=== PATIENT | female | born 1980 | race Caucasian/White ===

== ENCOUNTER 2018-04-16 07:57 | Day surgery (SDC) | payer OTHER ==
--- OUTSIDE RECORDS SUMMARY | 2018-04-16 08:00 | XMS REPORT | Clinical Summary ---
:1980 Author Organization [facility] Address [address] [place] [address] Care Team Providers Name Role Phone Shandra Horn MD Primary Care Provider Allergies Active Allergy Reactions Severity Noted Date Comments Sulfacetamide Sodium 02/15/2016 Current Medications Prescription Sig. Disp. Refills Start Date End Date Status albuterol (PROAIR HFA) INHALE TWO (2) Active 90 mcg/actuation PUFF(S) EVERY inhaler FOUR HOURS NEEDED. montelukast (SINGULAIR) TAKE ONE (1) Active 10 mg tablet TABLET(S) BY MOUTH EVERY DAY FOR 180 DAYS. MULTIVITAMIN (MULTIPLE Take by mouth. Active VITAMINS DAILY ORAL) fluticasone-salmeterol Inhale 1 puff 2 Active (ADVAIR) 250-50 (two) times a mcg/dose DISKUS day. acetaminophen-codeine 03/09/2016 Active (TYLENOL #3) 300-30 mg per tablet ibuprofen 03/09/2016 Active (ADVIL,MOTRIN) 800 MG tablet ondansetron (ZOFRAN, Take 1 tablet 20 tablet 0 03/13/2016 Active HYDROCHLORIDE,) 4 MG (4 mg total) by tablet mouth every 8 (eight) hours as needed for nausea or vomiting. albuterol (PROVENTIL) USE 1 VIAL VIA 360 mL 1 10/31/2016 Active 2.5 mg /3 mL (0.083 %) NEBULIZER 5 nebulizer solution TIMES A DAY NEEDED lisdexamfetamine Take 1 capsule 11/28/2016 Active (VYVANSE) 30 MG capsule (30 mg total) by mouth every morning for 30 days. 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/15/2016 Acute sinusitis 02/15/2016 Anxiety state 02/15/2016 Attention or concentration deficit 02/15/2016 H/O section 08/08/2011 Overview: Overview: Posterior placenta Infection due to Streptococcus agalactiae 07/28/2011 Exacerbation of asthma 07/28/2011 Immunizations Name Dates Previously Given Next Due DTaP 04/10/2008 Hep A, Unspecified 02/16/2014 IPV 02/16/2014 Influenza Split 06/28/2011 Influenza, Unspecified 07/11/2012 PPD Test 02/16/2014 Tdap 02/16/2014 Typhoid Inactivated 02/16/2014 Family History Medical History Relation Name Comments ADD / ADHD Daughter Anxiety disorder Father Heart attack Father sudden, diffuse disease Pancreatic cancer Maternal Grandmother Anxiety disorder Mother Rheumatic fever Paternal Grandfather Relation Name Status Comments Daughter Father Maternal Grandmother Mother Paternal Grandfather Social History Tobacco Use Types Packs/Day Years Used Date Former Smoker 0.5 Quit: 02/14/1999 Tobacco Cessation: Counseling Given: No Alcohol Use Drinks/Week oz/Week Comments Yes sometimes Sex Assigned at Date Recorded Not on file Last Filed Vital Signs Not on file Plan of Treatment Health Maintenance Due Date Last Done Comments CERVICAL CANCER SCREENING 1999 INFLUENZA VACCINE 05/01/2018 07/11/2012, 06/28/2011 Results Not on fileafter 04/15/2017 Insurance Payer Benefit Plan / Group Subscriber ID Type Phone Address [employer] PPO OPEN CHOICE xxxxxxxxxx PPO [id number] [phone] [address]
[2018-04-16 08:16] LABS: Specific Gravity 1.015 (1.005-1.030)
[2018-04-16] MEDS ORDERED: Ringers Lactate 1,000 ML IV ONE (08:17)
[2018-04-16] MEDS ORDERED: MIDAZOLAM HCL 2 MG/2 ML INJ ONE ×2 (08:45→09:12)
[2018-04-16] MEDS ORDERED: LIDOCAINE 1% W/EPI 1:100,000 MDV 50 ML VIAL ONE (08:59)
[2018-04-16] MEDS ORDERED: NA CHLORIDE 0.9% 1,000 ML ONE (09:00)
[2018-04-16] MEDS ORDERED: ONDANSETRON HCL 40 MG/20 ML VIAL ONE (09:12)
[2018-04-16] MEDS ORDERED: PROPOFOL 200 MG/20 ML VIAL IV ONE (09:12)
[2018-04-16] MEDS ORDERED: FENTANYL CITR 100 MCG/2 ML ONE (09:12)
[2018-04-16] MEDS ORDERED: LIDOCAINE 2% MPF 5 ML VIAL ONE (09:12)
[2018-04-16] MEDS ORDERED: KETOROLAC 30 MG/ML INJ ONE (09:27)
--- NOTE | 2018-04-16 13:00 | OP ---
Date of Procedure: 04/16/2018 Surgeon: Yari Hays MD Preoperative Diagnosis: Menorrhagia. Postoperative Diagnosis: Menorrhagia. Procedures Performed: Hysteroscopy, dilation and curettage. Anesthesia: MAC plus paracervical block. Specimens: Endometrial curettings. Complications: None. Drains: None. Estimated Blood Loss: Minimal. Condition: Stable. Procedure In Detail: Uterus was retroflexed. Cervix anterior and deviated to the left. Cavity soun ded about 9 cm. Very thickened endometrial aguilar. No intracavitary mass was seen. Both tubal ostia were well visualized. After informed consent was verified, patient was taken back to the OR, placed in a supine fashion on the operating table. After MAC was given, she was placed in a dorsal lithoto my position. Pelvic exam performed. Uterus retroflexed, enlarged about 10 week size. No adnexal ma sses were palpable. Speculum was placed to expose the cervix. Anterior lip injected with 1% lidocai ne mixed with 1:100,000 epinephrine, 10 cc was injected here. Then, 2 Allis clamps were placed here at 4 and 8 o'clock positions at the cervicovaginal junction, 5 cc each of the same solution was given for a paracervical block. Betadine was used to prep x3. Then diagnostic hysteroscopy was performed through the cervical canal directly into the uterine cavity. The cavity appeared to be empty, thick ened with thickened aguilar. Both tubal ostia normal. Scope removed. Endometrial curettings were per formed. Large amount of tissue was obtained and was handed off for permanent pathology. All the ins truments were removed. Instrument, needle, and sponge counts were done and were correct at the end o f the case. The patient tolerated the procedure well. She will follow up with us in 1 week. YESSENIA/SOPHIA Voice ID: [id number] Report ID: [id number]
== END 2018-04-16 10:05 | disposition home or self-care (01) ==
LOC: OR 07:57
PROVIDERS: ATTEND Obstetrics & Gynecology
PROC: 0UDB8ZX Extraction of Endometrium, Via Natural or Artificial Opening Endoscopic, Diagnostic (ICD-10-PCS; principal; 2018-04-16 09:00)
DX: N92.0 Excessive and frequent menstruation with regular cycle (principal); N94.10 Unspecified dyspareunia; D25.1 Intramural leiomyoma of uterus; J45.40 Moderate persistent asthma, uncomplicated
CPT/HCPCS: 81025; 88305; J2250; J2405; J3010; J7030